=== PATIENT | female | born 1965 | race Caucasian/White ===

== ENCOUNTER 2017-05-18 09:43 | Outpatient (CLI) | payer OTHER | END 2017-05-18 09:46 | disposition home or self-care (01) | LOC: SONOGRAMA 09:43 | DX: E04.1 Nontoxic single thyroid nodule (principal) ==

== ENCOUNTER 2018-05-25 11:50 | Outpatient (CLI) | payer OTHER | END 2018-05-25 11:52 | disposition home or self-care (01) | LOC: SONOGRAMA 11:50 | DX: E04.1 Nontoxic single thyroid nodule (principal) ==

== ENCOUNTER 2018-05-25 14:34 | Outpatient (CLI) | payer OTHER | END 2018-05-26 08:29 | disposition home or self-care (01) | LOC: MAMO-SONO 14:34 | DX: Z12.31 Encounter for screening mammogram for malignant neoplasm of breast (principal); N60.11 Diffuse cystic mastopathy of right breast; N60.12 Diffuse cystic mastopathy of left breast ==

== ENCOUNTER 2024-12-05 13:47 | Outpatient (CLI) | payer OTHER | END 2024-12-05 13:56 | disposition home or self-care (01) | LOC: SONOGRAMA 13:47 | DX: M25.562 Pain in left knee (principal) ==